=== PATIENT | male | born 1965 | race Caucasian/White ===

== ENCOUNTER 2017-12-02 19:14 | Emergency (ER) | payer OTHER ==
[~2017-12-02 19:14] MED LIST: ASPIRIN81 M4 PO; ATORVASTATIN CA40 M1 PO; CIPRO500 M1 PO; FINASTERIDE5 M1 PO; FLOMAX0.4 M1 PO; GLIMEPIRIDE2 MG PO; IBUPROFEN800 M1 PO; JANUVIA100 M1 PO; METFORMIN HCL1000 M1 PO; METFORMIN HCL500 M3 PO; PANTOPRAZOLE SO40 M1 PO; RISPERDAL4 M1 PO; VENLAFAXINE HCL75 MG PO; VITAMIN C1000 M4 PO
[2017-12-02 22:16] LABS: ABSOLUTE BASOPHIL COUNT 0.1 /CUMM (0.0-0.2); ABSOLUTE EOSINOPHIL COUNT 0.6 /CUMM (0.0-0.7); ABSOLUTE GRANULOCYTE CT 7.3 /CUMM (1.4-6.5); ABSOLUTE LYMPH COUNT 7.6 /CUMM (1.2-3.4); ABSOLUTE MONOCYTE COUNT 0.8 /CUMM (0.10-0.60); BASOPHIL % 0.4 % (0.0-2.0); EOSINOPHIL % 3.5 % (0-5); GRANULOCYTE % 44.6 % (42.2-75.2); HEMATOCRIT 38.1 % (42-52); MEAN CORPUSCULAR HGB 19.6 PG (27.0-31.0); MEAN CORPUSCULAR HGB CONC 32.2 G/DL (33.0-37.0); MEAN PLATELET VOLUME 8.3 FL (7.4-10.4); PLATELET COUNT 300 /CUMM (130-400); RBC DISTRIBUTION WIDTH 15.9 % (11.5-14.5); RED BLOOD CELL CT 6.24 /CUMM (4.70-6.10); WHITE BLOOD CELL COUNT 16.3 /CUMM (4.8-10.8)
[2017-12-03] MEDS ORDERED: BACTRIM DS TAB1 EACH PO (00:15)
[2017-12-03] MEDS ORDERED: KEFLEX500 M1 PO (00:15)
--- NOTE | 2017-12-03 00:16 | ED GENERAL ADULT ---
History of Present Illness General Chief Complaint: General Adult Stated Complaint: HERE 12/02 W/HERNIA, "THE AREA HAS EXPADED" Source: patient Exam Limitations: no limitations Vital Signs & Intake/Output Vital Signs & Intake/Output Vital Signs Date Time Temp Pulse Resp B/P B/P Pulse O2 O2 Flow FiO2 Mean Ox Delivery Rate 12/03 20 98.7 94 18 122/74 98 Room Air 12/03 0020 97 Room Air 12/02 1933 98.6 97 16 127/81 98 Room Air Allergies Coded Allergies: No Known Allergies (11/28/17) Reconcile Medications Ascorbic Acid (Vitamin C) 1,000 MG TABLET 1 TAB PO DAILY VITAMIN SUPPORT ( Reported) Aspirin (Aspirin*) 81 MG TAB.CHEW 1 TAB PO DAILY HEART HEALTH (Reported) Cephalexin (Keflex) 500 MG CAPSULE 1 CAP PO 4 TIMES/DAY cellulitis Ciprofloxacin HCl (Cipro) 500 MG TABLET 1 TAB PO BID CYSITIS Glimepiride 2 MG TABLET 1 TAB PO DAILY DIABETES (Reported) Ibuprofen 800 MG TABLET 1 TAB PO TID PRN PAIN Metformin HCl 1,000 MG TABLET 1 TAB PO DAILY DIABETES (Reported) Risperidone (Risperdal) 4 MG TABLET 1 TAB PO QPM MENTAL HEALTH (Reported) Sitagliptin Phosphate (Januvia) 100 MG TABLET 1 TAB PO DAILY DIABETES ( Reported) Sulfamethoxazole/Trimethoprim (Bactrim Ds Tablet) 800 MG-160 MG TABLET 1 TAB PO BID cellulitis Tamsulosin HCl (Flomax) 0.4 MG CAP.ER.24H 1 CAP PO DAILY BPH Triage Note: PT TO ED WITH C/O INCREASING PAIN AND REDNESS OVER KNOWN UMBILICAL HERNIA SITE. DENIES N/V. CURRENTLY BEING TREATED FOR UTI WELL. Triage Nurses Notes Reviewed? yes Onset: Gradual Duration: day(s): Timing: constant HPI: 52-year-old male with a history of diabetes presenting with redness to his abdominal wall over the past several days. Patient was seen and evaluated in the emergency department 4 days ago for a painful abdominal bulge. CT scan of the abdomen and pelvis showed a fat-containing umbilical hernia. He was given surgical follow-up for elective repair. States that his abdominal pain has resolved, but had slight redness over the site that has been progressively becoming bigger. Denies fevers, nausea, vomiting, diarrhea, constipation. Patient is also currently on ciprofloxacin for UTI. (WilliamsMaureen Burnett) Past History Travel History Traveled to [place] past 21 day No Medical History Any Pertinent Medical History? see below for history Neurological: NONE EENT: NONE Cardiovascular: NONE Respiratory: NONE Gastrointestinal: NONE Hepatic: NONE Renal: NONE Musculoskeletal: NONE Psychiatric: DELUSIONAL Endocrine: diabetes Blood Disorders: NONE Cancer(s): NONE TRIMMER MEAT/Reproductive: NONE Surgical History Surgical History: non-contributory Psychosocial History Who do you live with Spouse What is your primary language Lao Tobacco Use: Current Daily Use Daily Tobacco Use Amount/Type: => 5 Cigarettes daily Family History Hx Contributory? No (Maureen Peterson) Review of Systems Review of Systems Constitutional: Reports: no symptoms. EENTM: Reports: no symptoms. Respiratory: Reports: no symptoms. Cardiovascular: Reports: no symptoms. GI: Reports: see HPI. Genitourinary: Reports: see HPI. Musculoskeletal: Reports: no symptoms. Skin: Reports: no symptoms. Neurological/Psychological: Reports: no symptoms. Hematologic/Endocrine: Reports: no symptoms. Immunologic/Allergic: Reports: no symptoms. All Other Systems: Reviewed and Negative (Maureen Peterson) Physical Exam Physical Exam General Appearance: well developed/nourished, no apparent distress, alert, awake Comments: Gen.: Well-nourished, well-developed, no acute distress. Head: Normocephalic, atraumatic. Eyes: Normal inspection bilaterally Ears: Normal inspection bilaterally Nose: Normal inspection Neck: Normal inspection Lungs: clear to auscultation bilaterally, normnal breath sounds Heart: regular rate and rhythm Abdomen: soft and non-tender, no palpable masses or bulges, positive periumbilical erythema with no fluctuance or induration Back: No CVA tenderness Extremities: Normal inspection Neurologic: alert and oriented x3, steady gait Skin: warm and dry Psychiatric: Normal mood and affect, no apparent delusions or hallucinations, behavior appropriate Core Measures ACS in differential dx? No CVA/TIA Diagnosis: No Sepsis Present: No Sepsis Focused Exam Completed? No (Maureen Peterson) Progress Differential Diagnoses I considered the following diagnoses in my evaluation of the patient: [ Cellulitis versus abscess versus sepsis versus UTI versus pyelonephritis] Plan of Care: Orders Procedure Date/time Status URINALYSIS 12/02 2112 Complete LACTIC ACID 12/02 2112 Complete COMPREHENSIVE METABOLIC PANEL 12/02 2112 Complete CBC WITHOUT DIFFERENTIAL 12/02 2112 Complete Laboratory Tests 12/03/17 0013: Lactic Acid Cancelled 12/02/17 2313: Urine Color YEL, Urine Clarity CLEAR, Urine pH 6.0, Ur Specific [place] 1.025, Urine Protein NEG, Urine Ketones NEG, Urine Nitrite NEG, Urine Bilirubin NEG, Urine Urobilinogen 0.2, Ur Leukocyte Esterase NEG, Ur Microscopic EXAM NOT REQUIRED, Urine Hemoglobin NEG, Urine Glucose 250 H 12/02/172128: Anion Gap 9, Estimated GFR > 60, BUN/Creatinine Ratio 11.7, Glucose 136 H, Lactic Acid 1.2, Calcium 9.1, Total Bilirubin 0.7, AST 12 L, ALT 21, Alkaline Phosphatase 56, Total Protein 6.5, Albumin 3.9, Globulin 2.6, Albumin/Globulin Ratio 1.5, CBC w Diff MAN DIFF ORDERED, RBC 6.24 H, MCV 61.0 L, MCH 19.6 L, MCHC 32.2 L, RDW 15.9 H, MPV 8.3, Gran % 44.6, Lymphocytes % 46.4, Monocytes % 5.1, Eosinophils % 3.5, Basophils % 0.4, Absolute Granulocytes 7.3 H, Segmented Neutrophils 42 L, Absolute Lymphocytes 7.6 H, Lymphocytes 52 H, Monocytes 3, Absolute Monocytes 0.8 H, Eosinophils 3, Absolute Eosinophils 0.6, Absolute Basophils 0.1, Platelet Estimate VERIFIED BY SMEAR, Polychromasia , Anisocytosis 1+, Microcytic Cells 1+, Fld Total RBCs Counted 100 Exam is consistent with cellulitis. Labs are remarkable for leukocytosis of 16, which has been present on patient's last 2-3 lab tests. Although patient has a leukocytosis there is low concern for systemic disease as he has been afebrile with no nausea or vomiting, and is nontoxic-appearing. He was given a single dose of IV vancomycin and will switch his ciprofloxacin to Bactrim and Keflex in order to cover both skin and urinary bacteria. The borders of his erythema were marked with a skin marker. He was instructed to return to the emergency department in 2-3 days for a recheck, states that he will not be returning to the emergency department as he does not want to wait several hours again. States that he has an appointment already with his PMD on Friday and will follow -up for reevaluation then. Patient was given strict return precautions that he must return to the emergency department if he develops fevers, nausea, vomiting, or worsening redness that spreads beyond the borders of the skin marker. Patient discussed with the ED attending. Initial ED EKG: none (Maureen Peterson) Departure Departure Disposition: HOME OR SELF CARE Condition: Stable Clinical Impression Primary Impression: Cellulitis Referrals: Gadiel Sanchez DO (PCP/Family) Additional Instructions: Stop taking ciprofloxacin. Begin taking Bactrim and Keflex as prescribed. Follow-up with your primary care doctor as scheduled on Friday for recheck of your cellulitis. Return to the emergency department for any new or worsening symptoms. Departure Forms: Customer Survey General Discharge Information Prescriptions: Current Visit Scripts Sulfamethoxazole/Trimethoprim (Bactrim Ds Tablet) 1 TAB PO BID #20 TAB Cephalexin (Keflex) 1 CAP PO 4 TIMES/DAY #40 CAP (Maureen Peterson) PA/RADIOLOGY ASST Co-Sign Statement Statement: ED Attending supervision documentation- [] I saw and evaluated the patient. I have also reviewed all the pertinent lab results and diagnostic results. I agree with the findings and the plan of care as documented in the PA's/RADIOLOGY ASST's documentation. [x] I have reviewed the ED Record and agree with the PA's/RADIOLOGY ASST's documentation. [] Additions or exceptions (if any) to the PAs/RADIOLOGY ASST's note and plan are summarized below: [] (Marshall MCMAHAN,Deejay Frazier) Critical Care Note Critical Care Note Critical Care Time: non-applicable (Maureen Pteerson)
[2017-12-03 00:21] VITALS: BP 122/74
== END 2017-12-03 00:21 ==
LOC: ERH 19:14
PROVIDERS: Physician Assistant
DX: L03.311 Cellulitis of abdominal wall (principal); E11.9 Type 2 diabetes mellitus without complications; Z79.84 Long term (current) use of oral hypoglycemic drugs; N40.0 Benign prostatic hyperplasia without lower urinary tract symptoms; F17.210 Nicotine dependence, cigarettes, uncomplicated
CPT/HCPCS: 81003; 96374; J3370